=== PATIENT | female | born 1995 ===

== ENCOUNTER 2016-12-26 21:00 | Emergency (ER) | payer SELFPAY ==
[~2016-12-26] VITALS: Ht 162.6 cm; Wt 124.0 kg
[2016-12-26 21:05] VITALS: Ht 162.6 cm; Wt 124.0 kg
[2016-12-26] MEDS ORDERED: IBUP-1542 PO (23:15)
[2016-12-26] MEDS ORDERED: PRED20TA PO (23:15)
[2016-12-26] MEDS ORDERED: SODI126M NASAL (23:17)
[2016-12-26] MEDS ORDERED: IBUPROFEN 600 MG TAB PO ONE (23:30)
--- NOTE | 2016-12-27 02:12 | ERD ---
ER Documentation Chief Complaint Date/Time DATE: 12/27/16 TIME: 02:01 Chief Complaint MARSH w/cold symptoms today HPI 21-year-old female complaining of headache 1 week. She noticed numbness in her right face this afternoon. She has a cough and runny nose. Denies fever or chills. Denies shortness of breath. Denies trauma. Denies numbness tingling in the extremities. ROS All systems reviewed and are negative except as per history of present illness. Medications Home Meds Active Scripts Sodium Chloride (Saline Nasal Mist) 126 Ml Mist, 2 SPRAY NASAL Q2H Y for NASAL CONGESTION, #1 BOTTLE Prov:MAURA LANE. AIRFRAME TECHNICAL OFFICER 12/26/16 Prednisone* (Prednisone*) 20 Mg Tab, 60 MG PO DAILY for 5 Days, TAB Prov:MAURA LANE. AIRFRAME TECHNICAL OFFICER 12/26/16 Ibuprofen* (Motrin*) 600 Mg Tab, 600 MG PO Q6H Y for PAIN AND OR ELEVATED TEMP, #30 TAB Prov:MAURA LANE. AIRFRAME TECHNICAL OFFICER 12/26/16 Allergies Allergies: Coded Allergies: No Known Allergy (Unverified , 12/26/16) PMhx/Soc Medical and Surgical Hx: pt denies Medical Hx Hx Alcohol Use: No Hx Substance Use: No Hx Tobacco Use: No Physical Exam Vitals Vital Signs Date Time Temp Pulse Resp B/P Pulse Ox O2 Delivery O2 Flow Rate FiO2 12/26/16 21:05 98.1 94 18 134/76 95 Physical Exam General impression: Well-developed, well-nourished. Alert, oriented, in no acute distress Head: Normocephalic, atraumatic. Eyes: PERRL, EOM normal. Conjunctiva not injected. ENT: External canals clear. TM's pearly cardenas. Nasal mucosa erythematous and swollen with clear nasal discharge. Oral mucosa and oropharynx are normal. Neck: Supple, nontender. No lymphanopathy. No nuchal rigidity. Respiration: Normal respiratory effort. Lungs clear to auscultate bilaterally. No wheezes, rales or rhonchi. Cardiovascular: Regular rate and rhythm. No murmurs or extra heart sounds. Neuro: Mental status normal, speech normal. Patient reports no sensation on the right side of her face. No facial droop, moving eyebrows and smiles equally. Normal sensation and strength in all 4 extremities. No focal weakness noted. Skin: Normal turgor. No rash or lesions. Psych: Normal mood and affect. Results 24 hrs Current Medications Medications (Trade) Dose Ordered Sig/Lauren Route PRN Reason Start Time Stop Time Status Last Admin Dose Admin Ibuprofen (Motrin) 600 mg ONCE ONCE PO 12/26/16 23:30 12/26/16 23:31 DC 12/26/16 23:06 Procedures/MDM Well-appearing 21-year-old female complaining of headache 1 week, and right- sided facial paresthesia 1 day. Ibuprofen was given to the patient in the ED for headache. Patient does not appear to have Shetty's palsy, low suspicion for stroke. 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 Patient appears well, stable for discharge and outpatient management. Medical decision making shared with patient and family. Education provided to patient and family. Patient and family expressed understanding of the plan. Medications on discharge: Ibuprofen, prednisone. Follow-up: Primary care provider in 2-3 days or return to ED if worse. Departure Diagnosis: Primary Impression: Headache Headache type: unspecified Headache chronicity pattern: acute headache Intractability: not intractable Qualified Code: R51 - Acute nonintractable headache, unspecified headache type Additional Impression: Right facial numbness Condition: Good Patient Instructions: Self-Care for Headaches, Numbness Ref[facility]: [facility] Usted se marsh hecho un examen mdico de control que le indica que no est en jaskaran condicin que requiera tratamiento urgente en el Departamento de Emergencia. Un estudio ms profundo y el tratamiento de crystal condicin pueden esperar sin ningn riesgo hasta que usted sea atendida/o en el consultorio de crystal mdico o jaskaran cl charles. Es responsabilidad suya arreglar jaskaran kandy para el seguimiento del rafaela. MANEJO DE CONDICIONES NO URGENTES EN EL FUTURO 1) Si usted tiene un mdico de atencin primaria: Usted debera llamar a crystal mdico de atencin primaria antes de venir al departamento de emergencia. Despus de las horas de consultorio, crystal doctor o crystal asociado/a est disponible por telfono. El mdico o enfermero de jeffery en el servicio telefnico puede asesorarle por aicha medio para atender el problema, o rafaela contrario se puede programar jaskaran kandy. 2) Si usted no tiene un mdico de atencin primaria: Llame al mdico o clnica de referencia que aparece abajo kieran las horas de consultorio para hacer jaskaran kandy para que le vean. CLINICAS: [facility] [phone] [facility] [phone] [facility] [phone] [facility]. [place] [phone] [facility]. [place] [id number] [phone] [facility]. [phone] [address] Additional Instructions: Llame al doctor MAANA y sam jaskaran KANDY PARA DENTRO DE 2-3 CARTER.Dgale a la secretaria que nosotros le instruimos hacer esta kandy.Avise o llame si crystal condicin se empeora antes de la kandy. Regresa aqui si peor o no mejor. MAURA LANE NP Dec 27, 2016 02:12
== END 2016-12-26 23:30 | disposition home or self-care (01) ==
LOC: FTE 21:00
DX: R51 Headache (principal); R20.0 Anesthesia of skin
CPT/HCPCS: 99283